=== PATIENT | female | born 1990 | race Caucasian/White ===

== ENCOUNTER → 2016-08-15 | Outpatient (REF) | payer OTHER | LOC: M LAB REF 16:32 | PROVIDERS: ATTEND Nurse Practitioner Family | DX: N89.8 Other specified noninflammatory disorders of vagina (principal) ==

== ENCOUNTER → 2018-02-10 | Outpatient (CLI) | payer MEDICAID, OTHER | LOC: M CARPUL 13:06 | DX: J45.909 Unspecified asthma, uncomplicated (principal); R06.02 Shortness of breath | CPT/HCPCS: 94060 ==

== ENCOUNTER → 2020-06-14 | Outpatient (CLI) | payer OTHER | LOC: M LABSMTC 09:52 | PROVIDERS: ATTEND Family Medicine | DX: Z20.828 Contact with and (suspected) exposure to other viral communicable diseases (principal) ==

== ENCOUNTER → 2020-07-05 | Outpatient (REF) | payer OTHER ==
[2020-07-05 12:47] LABS: BASO # 0.1 10^3/uL (0.0-0.2); BASO % 0.8 % (0.0-1.0); EOS # 0.3 10^3/uL (0.0-0.5); EOS % 3.9 % (0.0-3.0); HEMATOCRIT 40.4 % (36.0-47.0); LYMPH # 2.4 10^3/uL (1.5-5.0); MEAN CORPUSCULAR HEMOGLOBIN 29.1 pg (27.0-33.0); MEAN CORPUSCULAR HGB CONC 32.2 g/dl (32.0-36.5); MEAN CORPUSCULAR VOLUME 90.6 fl (80.0-96.0); MONO # 0.5 10^3/uL (0.0-0.8); MONO % 6.5 % (0.0-5.0); NEUTROPHILS # 4.3 10^3/uL (1.5-8.5); NEUTROPHILS % 56.5 % (36.0-66.0); PLATELET COUNT, AUTOMATED 285 10^3/uL (150-450); RED BLOOD COUNT 4.46 10^6/uL (4.00-5.40); WHITE BLOOD COUNT 7.5 10^3/uL (4.0-10.0)
[2020-07-05 13:08] LABS: HEMOGLOBIN A1c 5.3 %
[2020-07-05 13:24] LABS: ALBUMIN 3.8 GM/DL (3.2-5.2); ALT/SGPT 23 U/L (12-78); BILIRUBIN,TOTAL 0.3 MG/DL (0.2-1.0); BLOOD UREA NITROGEN 14 MG/DL (7-18); CALCIUM LEVEL 9.1 MG/DL (8.5-10.1); CARBON DIOXIDE LEVEL 29 MEQ/L (21-32); CHLORIDE LEVEL 107 MEQ/L (98-107); CHOLESTEROL LEVEL 220 MG/DL (<200); CHOLESTEROL RISK RATIO 5.641 (<5); CREATININE FOR GFR 0.79 MG/DL (0.55-1.30); FREE T4 1.09 NG/DL (0.76-1.46); GLOMERULAR FILTRATION RATE > 60.0 (>60); GLUCOSE, FASTING 95 MG/DL (70-100); HDL CHOLESTEROL 39 MG/DL (>40); LDL CHOLESTEROL 164 MG/DL (<100); NON-HDL-C 181 MG/DL; POTASSIUM SERUM 4.2 MEQ/L (3.5-5.1); SODIUM LEVEL 141 MEQ/L (136-145); TOTAL PROTEIN 6.8 GM/DL (6.4-8.2); TRIGLYCERIDES LEVEL 86 MG/DL (<150)
[2020-07-05 13:25] LABS: TOTAL 25(OH) VITAMIN D 30.8 NG/ML (30.0-100.0)
== END ==
LOC: M LAB REF 12:00
PROVIDERS: ATTEND Nurse Practitioner Family
DX: Z00.00 Encounter for general adult medical examination without abnormal findings (principal); Z13.228 Encounter for screening for other metabolic disorders; J45.909 Unspecified asthma, uncomplicated; F41.1 Generalized anxiety disorder

== ENCOUNTER → 2022-01-22 | Outpatient (CLI) | payer OTHER | LOC: M CARPUL 15:00 | PROVIDERS: ATTEND Nurse Practitioner Family | DX: J45.909 Unspecified asthma, uncomplicated (principal) ==

== ENCOUNTER → 2022-03-28 | Outpatient (CLI) | payer OTHER ==
[~2022-03-28] MED LIST: ALBU8.5H INH; EXCETAB32 PO; LORA-674 PO; NORE1TAB73 PO; OMEP-173 PO
== END ==
LOC: M LABSMTC 10:25
PROVIDERS: ATTEND Anesthesiology
DX: Z01.818 Encounter for other preprocedural examination (principal); Z11.52 Encounter for screening for COVID-19

== ENCOUNTER 2022-04-02 09:46 | Day surgery (SDC) | payer OTHER ==
[~2022-04-02] VITALS: Ht 160 cm; Wt 72.9 kg
[2022-04-02] MEDS ORDERED: LR 1,000 ML IV SCH ×3 (10:10→12:35)
[2022-04-02] MEDS ORDERED: MIDAZOLAM INJ 2MG/2ML VIAL (J2250 PER 1MG) As Ordered ONE (10:13)
[2022-04-02] MEDS ORDERED: fentaNYL 100 MCG/2 ML INJECTION As Ordered ONE (10:14)
[2022-04-02] MEDS ORDERED: dexameTHASONE 4 MG/ML 1ML VIAL (J1100 PER 1MG) As Ordered ONE (10:14)
[2022-04-02] MEDS ORDERED: ROCURONIUM BROMIDE 50 MG/5 ML VIAL As Ordered ONE (10:14)
[2022-04-02] MEDS ORDERED: propofoL 200 MG/20 ML VIAL As Ordered ONE (10:14)
[2022-04-02] MEDS ORDERED: ONDANSETRON 4MG 2ML VIAL As Ordered ONE (10:14)
[2022-04-02] MEDS ORDERED: LIDOCAINE 2% 100MG/5ML SDV (FOR ANES.) As Ordered ONE (10:14)
[2022-04-02] MEDS ORDERED: LIDOCAINE W/EPINEPHRINE 1% 20ML VIAL As Ordered ONE (10:25)
[2022-04-02] MEDS ORDERED: OXYMETAZOLINE 0.05% NASAL SPRAY (AFRIN) As Ordered ONE (10:25)
[2022-04-02] MEDS ORDERED: COCAINE 4% 4ML NASAL SOLUTION BTL As Ordered ONE (10:26)
[2022-04-02] MEDS ORDERED: ACETAMINOPHEN 1000MG 100ML IV BTL (OFIRMEV) (J0131 PER 10MG) As Ordered ONE (11:09)
[2022-04-02] MEDS ORDERED: SUGAMMADEX SODIUM 500 MG/5 ML VIAL (BRIDION) As Ordered ONE (11:38)
[2022-04-02] MEDS ORDERED: MORPHINE 2 MG/ML 1ML VIAL IV PRN ×2 (12:15→12:35)
[2022-04-02] MEDS ORDERED: fentaNYL 100 MCG/2 ML INJECTION IV PRN (12:15)
[2022-04-02] MEDS ORDERED: ONDANSETRON 4MG 2ML VIAL IV PRN ×2 (12:15→12:35)
[2022-04-02] MEDS ORDERED: HYDROmorphone HCL 2MG/ML 1ML VIAL As Ordered ONE (12:31)
[2022-04-02] MEDS ORDERED: ANEXSIA, NORCO 7.5MG/325MG TABLET(HYDROCODONE/APAP) PO PRN (12:35)
[2022-04-02] MEDS: PERCOCET 5MG/325MG TAB PO PRN ×2 (12:48→13:17)
[2022-04-02 13:35] VITALS: BP 134/73
== END 2022-04-02 14:12 | disposition home or self-care (01) ==
LOC: M SDC 09:46
PROVIDERS: ATTEND Otolaryngology
DX: J34.2 Deviated nasal septum (principal); J34.3 Hypertrophy of nasal turbinates; R09.81 Nasal congestion; J45.909 Unspecified asthma, uncomplicated; Z86.16 Personal history of COVID-19; Z79.899 Other long term (current) drug therapy; Z79.3 Long term (current) use of hormonal contraceptives
CPT/HCPCS: 30140; 30520; 81025; C9046; J0131; J1100; J2250; J2405; J3010

== ENCOUNTER → 2022-06-12 | Outpatient (CLI) | payer OTHER ==
[2022-06-12 12:26] LABS: BASO # 0.1 10^3/uL (0.0-0.2); BASO % 0.6 % (0.0-1.0); EOS # 0.1 10^3/uL (0.0-0.5); EOS % 1.7 % (0.0-3.0); HEMATOCRIT 43.9 % (36.0-47.0); HEMOGLOBIN 14.2 g/dl (12.0-15.5); LYMPH # 2.3 10^3/uL (1.5-5.0); LYMPH % 28.4 % (24.0-44.0); MEAN CORPUSCULAR HEMOGLOBIN 29.8 pg (27.0-33.0); MEAN CORPUSCULAR HGB CONC 32.3 g/dl (32.0-36.5); MONO # 0.4 10^3/uL (0.0-0.8); MONO % 5.4 % (2.0-8.0); NEUTROPHILS # 5.2 10^3/uL (1.5-8.5); NEUTROPHILS % 63.7 % (36.0-66.0); PLATELET COUNT, AUTOMATED 266 10^3/uL (150-450); RED BLOOD COUNT 4.77 10^6/uL (4.00-5.40); WHITE BLOOD COUNT 8.2 10^3/uL (4.0-10.0)
[2022-06-12 15:33] LABS: ALBUMIN 3.8 GM/DL (3.2-5.2); ALT/SGPT 35 U/L (12-78); AMYLASE 74 U/L (25-115); BILIRUBIN,TOTAL 0.2 MG/DL (0.2-1.0); BLOOD UREA NITROGEN 12 MG/DL (7-18); CALCIUM LEVEL 9.1 MG/DL (8.5-10.1); CARBON DIOXIDE LEVEL 27 MEQ/L (21-32); CHLORIDE LEVEL 107 MEQ/L (98-107); CREATININE FOR GFR 0.82 MG/DL (0.55-1.30); FREE T4 0.98 NG/DL (0.76-1.46); GLOMERULAR FILTRATION RATE > 60.0 (>60); GLUCOSE, FASTING 92 MG/DL (70-100); IRON (FE) 66 UG/DL (50-170); LIPASE 170 U/L (73-393); PERCENT SATURATION 20.2 % (13.2-45.0); POTASSIUM SERUM 3.9 MEQ/L (3.5-5.1); SODIUM LEVEL 139 MEQ/L (136-145); TOTAL IRON BINDING CAPACITY 327 UG/DL (250-450); TOTAL PROTEIN 6.9 GM/DL (6.4-8.2)
== END ==
LOC: M WUC 09:20
PROVIDERS: ATTEND Physician Assistant
DX: R10.84 Generalized abdominal pain (principal)

== ENCOUNTER → 2022-06-21 | Outpatient (CLI) | payer OTHER | LOC: M WHC 07:57 | PROVIDERS: ATTEND Nurse Practitioner Family | DX: R10.9 Unspecified abdominal pain (principal) ==

== ENCOUNTER → 2022-06-27 | Outpatient (REF) | payer OTHER ==
[2022-06-27 14:29] LABS: CHOLESTEROL RISK RATIO 5.19 (<5); HDL CHOLESTEROL 35.8 MG/DL (>40)
== END ==
LOC: M LAB REF 12:56
PROVIDERS: ATTEND Nurse Practitioner Family
DX: R79.89 Other specified abnormal findings of blood chemistry (principal)

== ENCOUNTER → 2022-11-19 | Outpatient (REF) | payer OTHER | LOC: M SFHCWAGY 17:27 | PROVIDERS: ATTEND Specialist | DX: Z12.4 Encounter for screening for malignant neoplasm of cervix (principal) ==

== ENCOUNTER → 2023-01-16 | Outpatient (CLI) | payer OTHER | LOC: M PLAIMG 08:44 | PROVIDERS: ATTEND Physician Assistant | DX: J45.20 Mild intermittent asthma, uncomplicated (principal) ==

== ENCOUNTER → 2023-07-10 | Outpatient (REF) | payer OTHER ==
[~2023-07-10] MED LIST changes: +LORA-1041 PO; -LORA-674 PO
[2023-07-10 17:06] LABS: BASO # 0.1 10^3/uL (0.0-0.2); BASO % 0.8 % (0.0-1.0); EOS # 0.3 10^3/uL (0.0-0.5); HEMATOCRIT 41.5 % (36.0-47.0); LYMPH # 3.8 10^3/uL (1.5-5.0); LYMPH % 36.8 % (24.0-44.0); MEAN CORPUSCULAR HEMOGLOBIN 30.7 pg (27.0-33.0); MEAN CORPUSCULAR HGB CONC 33.7 g/dl (32.0-36.5); MONO # 0.7 10^3/uL (0.0-0.8); MONO % 6.5 % (2.0-8.0); NEUTROPHILS # 5.5 10^3/uL (1.5-8.5); NEUTROPHILS % 52.6 % (36.0-66.0); PLATELET COUNT, AUTOMATED 315 10^3/uL (150-450); RED BLOOD COUNT 4.56 10^6/uL (4.00-5.40); WHITE BLOOD COUNT 10.4 10^3/uL (4.0-10.0)
[2023-07-10 17:39] LABS: ALBUMIN 3.9 G/DL (3.2-5.2); ALKALINE PHOSPHATASE 50 U/L (46-116); ALT/SGPT 25 U/L (7.0-40); AST/SGOT 20 U/L (<34); BILIRUBIN,TOTAL 0.2 MG/DL (0.3-1.2); BLOOD UREA NITROGEN 13 MG/DL (9-23); CALCIUM LEVEL 9.2 MG/DL (8.5-10.1); CARBON DIOXIDE LEVEL 28 MMOL/L (20-31); CHLORIDE LEVEL 105 MMOL/L (98-107); CHOLESTEROL LEVEL 223 MG/DL (<200); CHOLESTEROL RISK RATIO 5.15 (<5); GLOMERULAR FILTRATION RATE > 60.0 (>60); GLUCOSE, FASTING 84 MG/DL (60-100); HDL CHOLESTEROL 43.3 MG/DL (>40); LDL CHOLESTEROL 144.1 MG/DL (<100); NON-HDL-C 179.7 MG/DL; POTASSIUM SERUM 4.2 MMOL/L (3.5-5.1); SODIUM LEVEL 138 MMOL/L (136-145); TOTAL PROTEIN 6.9 G/DL (5.7-8.2); TRIGLYCERIDES LEVEL 178 MG/DL (<150)
[2023-07-10 17:41] LABS: THYROID STIMULATING HORMONE 1.775 uIU/ML (0.55-4.78); TOTAL 25(OH) VITAMIN D 18.6 NG/ML (20.0-100.0)
== END ==
LOC: M LAB REF 16:31
PROVIDERS: ATTEND Nurse Practitioner Family
DX: Z13.228 Encounter for screening for other metabolic disorders (principal)

== ENCOUNTER → 2023-08-02 | Outpatient (CLI) | payer OTHER | LOC: M WHC 15:26 | PROVIDERS: ATTEND Nurse Practitioner Family | DX: R10.32 Left lower quadrant pain (principal) ==

== ENCOUNTER → 2023-10-10 | Outpatient (REF) | payer OTHER ==
[2023-10-10 13:10] LABS: CHOLESTEROL RISK RATIO 5.21 (<5); HDL CHOLESTEROL 36.6 MG/DL (>40); NON-HDL-C 154.4 MG/DL
== END ==
LOC: M LAB REF 11:36
PROVIDERS: ATTEND Nurse Practitioner Family
DX: E78.5 Hyperlipidemia, unspecified (principal)

== ENCOUNTER → 2023-12-02 | Outpatient (REF) | payer OTHER | LOC: M SFHCWAGY 13:02 | PROVIDERS: ATTEND Specialist | DX: R87.810 Cervical high risk human papillomavirus (HPV) DNA test positive (principal) ==

== ENCOUNTER → 2024-01-10 | Outpatient (REF) | payer OTHER | LOC: M SFHCWAGY 17:25 | PROVIDERS: ATTEND Specialist | DX: R87.613 High grade squamous intraepithelial lesion on cytologic smear of cervix (HGSIL) (principal) ==

== ENCOUNTER → 2024-02-28 | Outpatient (REF) | payer OTHER | LOC: M SFHCWAGY 10:20 | PROVIDERS: ATTEND Specialist | DX: D06.9 Carcinoma in situ of cervix, unspecified (principal) ==

== ENCOUNTER → 2024-04-22 | Outpatient (REF) | payer OTHER ==
[2024-04-22 13:32] LABS: BASO # 0.1 10^3/uL (0.0-0.2); BASO % 0.6 % (0.0-1.0); EOS # 0.2 10^3/uL (0.0-0.5); EOS % 2.5 % (0.0-3.0); HEMOGLOBIN 14.3 g/dl (12.0-15.5); LYMPH # 2.4 10^3/uL (1.5-5.0); LYMPH % 30.3 % (24.0-44.0); MEAN CORPUSCULAR HEMOGLOBIN 30.5 pg (27.0-33.0); MEAN CORPUSCULAR VOLUME 89.6 fl (80.0-96.0); MONO # 0.5 10^3/uL (0.0-0.8); MONO % 6.1 % (2.0-8.0); NEUTROPHILS # 4.8 10^3/uL (1.5-8.5); NEUTROPHILS % 60.2 % (36.0-66.0); PLATELET COUNT, AUTOMATED 262 10^3/uL (150-450); RED BLOOD COUNT 4.69 10^6/uL (4.00-5.40)
[2024-04-22 13:37] LABS: THYROID STIMULATING HORMONE 1.239 uIU/ML (0.55-4.78)
[2024-04-22 13:38] LABS: ALBUMIN 3.7 G/DL (3.2-5.2); ALKALINE PHOSPHATASE 51 U/L (46-116); ALT/SGPT 25 U/L (7.0-40); AST/SGOT 13 U/L (<34); BILIRUBIN,TOTAL 0.3 MG/DL (0.3-1.2); BLOOD UREA NITROGEN 14 MG/DL (9-23); CALCIUM LEVEL 9.1 MG/DL (8.5-10.1); CARBON DIOXIDE LEVEL 26 MMOL/L (20-31); CHLORIDE LEVEL 107 MMOL/L (98-107); CHOLESTEROL LEVEL 223 MG/DL (<200); CHOLESTEROL RISK RATIO 6.22 (<5); CREATININE FOR GFR 0.68 MG/DL (0.55-1.30); GLOMERULAR FILTRATION RATE > 60.0 (>60); GLUCOSE, FASTING 92 MG/DL (60-100); HDL CHOLESTEROL 35.8 MG/DL (>40); LDL CHOLESTEROL 159.2 MG/DL (<100); MAGNESIUM LEVEL 1.8 MG/DL (1.8-2.4); NON-HDL-C 187.2 MG/DL; SODIUM LEVEL 137 MMOL/L (136-145); TOTAL PROTEIN 6.8 G/DL (5.7-8.2); TRIGLYCERIDES LEVEL 140 MG/DL (<150)
== END ==
LOC: M LAB REF 12:28
PROVIDERS: ATTEND Nurse Practitioner Family
DX: E66.3 Overweight (principal)

== ENCOUNTER → 2024-11-06 | Outpatient (REF) | payer OTHER ==
[2024-11-06 18:31] LABS: BASO # 0.1 10^3/uL (0.0-0.2); BASO % 0.6 % (0.0-1.0); EOS # 0.2 10^3/uL (0.0-0.5); HEMATOCRIT 40.2 % (36.0-47.0); HEMOGLOBIN 13.6 g/dl (12.0-15.5); HEMOGLOBIN A1c 5.1 % (4.0-6.0); LYMPH # 3.6 10^3/uL (1.5-5.0); LYMPH % 32.7 % (24.0-44.0); MEAN CORPUSCULAR HEMOGLOBIN 30.2 pg (27.0-33.0); MEAN CORPUSCULAR HGB CONC 33.8 g/dl (32.0-36.5); MEAN CORPUSCULAR VOLUME 89.1 fl (80.0-96.0); MONO # 0.6 10^3/uL (0.0-0.8); MONO % 5.8 % (2.0-8.0); NEUTROPHILS # 6.4 10^3/uL (1.5-8.5); NEUTROPHILS % 58.5 % (36.0-66.0); PLATELET COUNT, AUTOMATED 267 10^3/uL (150-450); RED BLOOD COUNT 4.51 10^6/uL (4.00-5.40); WHITE BLOOD COUNT 10.9 10^3/uL (4.0-10.0)
[2024-11-06 18:40] LABS: ALBUMIN 3.8 G/DL (3.2-5.2); ALKALINE PHOSPHATASE 48 U/L (35-104); ALT/SGPT 19 U/L (7.0-40); AST/SGOT 16 U/L (<34); BILIRUBIN,TOTAL 0.2 MG/DL (0.3-1.2); BLOOD UREA NITROGEN 10 MG/DL (9-23); CALCIUM LEVEL 8.9 MG/DL (8.5-10.1); CARBON DIOXIDE LEVEL 27 MMOL/L (20-31); CHLORIDE LEVEL 105 MMOL/L (98-107); CHOLESTEROL LEVEL 214 MG/DL (<200); CHOLESTEROL RISK RATIO 5.83 (<5); CREATININE FOR GFR 0.73 MG/DL (0.55-1.30); GLOMERULAR FILTRATION RATE > 60.0 (>60); GLUCOSE, FASTING 78 MG/DL (60-100); HDL CHOLESTEROL 36.7 MG/DL (>40); LDL CHOLESTEROL 147.5 MG/DL (<100); NON-HDL-C 177.3 MG/DL; SODIUM LEVEL 139 MMOL/L (136-145); TOTAL PROTEIN 6.8 G/DL (5.7-8.2); TRIGLYCERIDES LEVEL 149 MG/DL (<150)
== END ==
LOC: M LAB REF 17:43
PROVIDERS: ATTEND Nurse Practitioner Family
DX: E78.5 Hyperlipidemia, unspecified (principal); E66.3 Overweight; E55.9 Vitamin D deficiency, unspecified

== ENCOUNTER → 2024-11-09 | Outpatient (CLI) | payer OTHER | LOC: M SOG 07:54 | PROVIDERS: ATTEND Orthopaedic Surgery | DX: M25.561 Pain in right knee (principal) ==

== ENCOUNTER → 2025-04-28 | Outpatient (REF) | payer OTHER ==
[2025-04-28 15:11] LABS: CHOLESTEROL LEVEL 228.0 MG/DL (<200); CHOLESTEROL RISK RATIO 6.16 (<5); LDL CHOLESTEROL 167.8 MG/DL (<100); NON-HDL-C 191.0 MG/DL; TRIGLYCERIDES LEVEL 116.0 MG/DL (<150)
== END ==
LOC: M LAB REF 14:10
PROVIDERS: ATTEND Student in an Organized Health Care Education/Training Program
DX: E78.5 Hyperlipidemia, unspecified (principal)

== ENCOUNTER → 2025-06-16 | Outpatient (CLI) | payer OTHER ==
[2025-06-16 15:43] LABS: PLATELET COUNT, AUTOMATED 281 10^3/uL (150-450)
[2025-06-16 16:02] LABS: LDH LACTATE DEHYDROGENASE 147 U/L (120-246)
[2025-06-16 16:03] LABS: ALT/SGPT 26 U/L (7.0-40); AST/SGOT 21 U/L (<34); CREATININE FOR GFR 0.52 MG/DL (0.55-1.30); GLOMERULAR FILTRATION RATE > 90.0 (>60)
[2025-06-16 16:46] LABS: Trichomonas vaginalis (AMP) NOT DETECTED (NEGATIVE)
[2025-06-16 17:10] LABS: GC DNA AMPLIFICATION NEGATIVE (NEGATIVE); TOTAL PROTEIN,RANDOM URINE 7.4 MG/DL (0.0-14.0)
[2025-06-16 17:21] LABS: HIV 1&2 SCREEN NEGATIVE (NEGATIVE)
[2025-06-16 17:28] LABS: HEPATITIS C VIRUS ABY INDEX < 0.02 INDEX (<0.8)
== END ==
LOC: M PLALAB 11:25
PROVIDERS: ATTEND Nurse Practitioner Family
DX: O09.511 Supervision of elderly primigravida, first trimester (principal)

== ENCOUNTER → 2025-07-21 | Outpatient (CLI) | payer OTHER | LOC: M WHC 13:18 | PROVIDERS: ATTEND Nurse Practitioner Family | DX: Z34.80 Encounter for supervision of other normal pregnancy, unspecified trimester (principal) ==